=== PATIENT | female | born 1950 | race African-American/Black ===

== ENCOUNTER 2017-04-20 13:35 | Inpatient (IN) | payer OTHER ==
[~2017-04-20] VITALS: Ht 160 cm; Wt 63.5 kg
--- NOTE | ~2017-04-20 | HC ---
[facility] [place] [address] CONSULTATION Name: MESSI CHAMBERLAIN Room #: 421-P ADM IN M.R.#: [id number] Admission: 04/20/17 Attend Phys: Samuel Malone DO Discharge: Date of : 50 Report #: [id number] THIS REPORT FOR: //name// CC: [facility] physician/PCP Missael TORRES MD REASON FOR CONSULTATION: The patient is a 66-year-old woman with abdominal pain and CT evidence of diverticulitis. HISTORY OF PRESENT ILLNESS: The patient reports that about 4-5 years ago, she had an episode of diverticulitis when she developed severe left lower quadrant abdominal pain. She was evaluated and treated nonsurgically. She also had a colonoscopy at that time and was told that she had some colon polyps. She has not had a followup colonoscopy since that time. She reports she has done well since that time, although she does have some problems with constipation, and she takes Correctol and Metamucil and still has some difficulty with defecation. She has not had any rectal bleeding. She was well until the past several days when she developed vague lower abdominal pain. The pain was tolerable. However, yesterday when she was at a ____ shop purchasing some DVDs for her grandchildren, she developed severe abdominal pain, had a syncopal episode and hit her head. She was brought to [facility] where she underwent evaluation. She did have a noncontrast CT of the head. No acute processes were identified. She also had a CTA of the abdomen and pelvis, which revealed extensive diverticular disease in the descending and sigmoid colon with abnormal wall thickening and pericolonic fat stranding in the [id number] sigmoid colon consistent with acute diverticulitis. She was also found to have evidence of a new bulky retroperitoneal lymphadenopathy, which was reported to be nonspecific, but it did raise a question of lipoma or metastatic disease. She also had uterine fibroid and a large hepatic hemangioma. PAST MEDICAL HISTORY: Previous diverticulitis, high blood pressure and elevated cholesterol. PAST SURGICAL HISTORY: C-sections x 4. ALLERGIES: ERYTHROMYCIN AND PENICILLIN. USUAL HOME MEDICINES: Quinapril 10 mg daily and pravastatin 20 mg at bedtime. FAMILY HISTORY: Father had bone cancer. She thinks her mother had a lymphoma. There is no family history of colon cancer. [facility] [address] [place] [address] CONSULTATION Name: MESSI CHAMBERLAIN Room #: 421-P [facility] IN M.R.#: [id number] Admission: 04/20/17 Attend Phys: Samuel Malone DO Discharge: Date of : 50 Report #: [id number] SOCIAL HISTORY: for 45 years. She never smoked and does not consume alcohol. REVIEW OF SYSTEMS: GENERAL: No change in weight, fever or chills. CENTRAL NERVOUS SYSTEM: No focal weakness, numbness, loss of consciousness or stroke other than the syncopal episode yesterday, which was thought to be vasovagal. HEENT: No change in vision, hearing or sores in the mouth. PULMONARY: No cough, pneumonia or tuberculosis. CARDIOVASCULAR: No chest pain, chest tightness or palpitations. GASTROINTESTINAL: No nausea, vomiting or hematemesis. He has had diverticulitis and polyps in the past. No rectal bleeding. GENITOURINARY: Without dysuria or pyuria, kidney stones or kidney tract infections. GYNECOLOGIC: Previous C-sections, no discharges or breast problems. MUSCULOSKELETAL: No arthralgias or myalgias. SKIN: Without rashes. PSYCHIATRIC: No depression, anxiety or bipolar illness. ENDOCRINE: She denies hormone problems, diabetes or thyroid disease. HEMATOLOGIC: No bleeding, bruising or known malignancies. PHYSICAL EXAMINATION: GENERAL: The patient is a well-developed, well-nourished, overweight woman in no acute distress. VITAL SIGNS: Blood pressure 139/64, pulse 72. HEENT: Anicteric. Pupils equal and round. Oropharynx clear. NECK: Supple. CHEST: Clear. HEART: Regular rate and rhythm, normal S1 and S2. ABDOMEN: Obese, normal bowel sounds, soft without hepatosplenomegaly, nodules or masses. She does have moderate tenderness in the left abdomen but no rebound or rigidity, and overall, she has benign abdomen. RECTAL: Deferred. EXTREMITIES: Without cyanosis, clubbing or edema. NEUROLOGIC: Oriented to person, place and time. Moves all 4 extremities well. LABORATORIES: White count of 12.5, initially down to 5.4. Hemoglobin was 12.7, down to 10.3, MCV of 89.9. Electrolytes notable for potassium of 3.2. BUN and creatinine are within normal limits. Liver function studies were normal. Albumin was 3.8 on admission. Lipase was 121. ASSESSMENT: 1. Acute diverticulitis, recurrent. 2. History of colon polyps. 3. Retroperitoneal adenopathy, new finding. [facility] [address] [place] [address] CONSULTATION Name: MESSI CHAMBERLAIN Room #: 421-P ADM IN M.R.#: [id number] Admission: 04/20/17 Attend Phys: Samuel Malone DO Discharge: Date of : 50 Report #: [id number] 4. Family history of lymphoma in her mother. 5. High blood pressure. 6. Elevated cholesterol. 7. Recent loss of consciousness, questionably vasovagal event associated with abdominal pain. RECOMMENDATIONS: 1. The patient is currently receiving antibiotics with Cipro and metronidazole and would continue. 2. Colonoscopy, especially in view of her history of colon polyps. Would defer for about 4 weeks to allow healing of her diverticulitis. 3. The patient will need followup of her retroperitoneal adenopathy, likely a followup CT, and if not resolved, hematologic evaluation. <ELECTRONICALLY SIGNED> By: Missael Ramirez MD 04/23/17 1601 [id number] Missael Ramirez MD /nt
--- NOTE | ~2017-04-20 | EKG ---
[address] [employer] [place] [address] ELECTROCARDIOGRAM REPORT Name: MESSI CHAMBERLAIN Room #: 421-P ADM IN M.R.#: [id number] Admission: 04/20/17 Attend Phys: Samuel Malone DO Discharge: Date of : 50 Report #: [id number] THIS REPORT FOR: //name// [facility] ED Test Date: 2017-04-20 Test Time: 13:45:24 Pat Name: MESSI CHAMBERLAIN Department: Room: [facility] Gender: F [employer] Custodian: BRADY : 1950 Requested By: Horace Kumar Order Number: [id number] MD: Shade Torres Measurements Intervals [place] Rate: 76 P: 69 [place]: 187 QRS: 53 QRSD: 84 T: 42 QT: 364 QTc: 410 Interpretive Statements Sinus rhythm No significant abnormality Compared to ECG 09/09/2009 22:46:08 ST (T wave) deviation no longer present Electronically Signed On 04-22-2017 13:36:08 CDT by Shade Torres [email or web address] <ELECTRONICALLY SIGNED> By: Shade Torres MD, [facility] 04/22/17 1336 [id number] 44 Shade Torres MD, [facility] /EPI
[~2017-04-20 13:35] MED LIST: CHERATUSSIN DA480 ML PO; DOXYCYCLINE 10100 MG PO; QUINAPRIL 20 MG20 MG PO
[2017-04-20 13:36] VITALS: BP 163/66
[2017-04-20 13:59] LABS: HEMATOCRIT 37.3 % (37.0-47.0); HEMOGLOBIN 12.7 gm/dL (12.0-15.0); MCH 30.4 pg (26.0-34.0); MCHC 33.9 g/dL (28.0-37.0); MCV 89.6 fL (80.0-100.0); RBC 4.16 mil/uL (4.20-5.00); RDW 13.2 % (10.5-14.5); WBC 12.5 thou/uL (4.0-11.0)
[2017-04-20 14:06] LABS: ANION GAP 9 mmol/L (7-16); BUN 11 mg/dL (7-18); CALCIUM 9.2 mg/dL (8.5-10.1); CHLORIDE 105 mmol/L (98-107); CO2 25 mmol/L (21-32); CREATININE 0.8 mg/dL (0.6-1.0); GLUCOSE 112 mg/dL (74-106); POTASSIUM 3.4 mmol/L (3.5-5.1); SODIUM 139 mmol/L (136-145)
[2017-04-20 14:15] LABS: ALBUMIN 3.8 g/dL (3.4-5.0); ALKALINE PHOSPHATASE 47 U/L (46-116); DIRECT BILIRUBIN 0.2 mg/dL (<0.1-0.3); SGOT 18 U/L (15-37); SGPT 29 U/L (30-65); TOTAL BILIRUBIN 0.8 mg/dL (<0.1-1.0); TOTAL PROTEIN 7.3 g/dL (6.4-8.2); TROPONIN-I < 0.04 ng/mL (<0.04-0.07)
[2017-04-20 17:26] LABS: URINE BILIRUBIN NEGATIVE (Negative); URINE BLOOD TRACE (Negative); URINE COLOR YELLOW; URINE GLUCOSE-RANDOM* NEGATIVE (Negative); URINE KETONES TRACE (Negative); URINE LEUKOCYTES-REFLEX NEGATIVE (Negative); URINE PROTEIN (DIPSTICK) NEGATIVE (Negative); URINE SPECIFIC GRAVITY <= 1.005 (1.003-1.035); URINE UROBILINOGEN 0.2 E.U./dl (0.2-1.0)
[2017-04-20 17:46] VITALS: BP 164/73
[2017-04-20 17:52] VITALS: BP 164/73
[2017-04-20 18:06] VITALS: BP 158/66
[2017-04-20] MEDS ORDERED: QUINU10 PD PO (18:37)
[2017-04-20] MEDS ORDERED: PRAVACHOL20 MG PO (18:38)
[2017-04-20 20:00] VITALS: BP 179/65
[2017-04-21] VITALS: BP 149/65
[2017-04-21 06:06] LABS: ABSOLUTE NEUTROPHILS 6.9 thou/uL (1.4-8.2); BASOPHILS 0.7 % (0.0-2.0); HEMATOCRIT 34.1 % (37.0-47.0); HEMOGLOBIN 11.4 gm/dL (12.0-15.0); LYMPHOCYTES 14.7 % (24.0-44.0); MCH 30.1 pg (26.0-34.0); MCHC 33.3 g/dL (28.0-37.0); MCV 90.1 fL (80.0-100.0); MONOCYTES 6.8 % (1.0-8.0); PLATELET COUNT 214 thou/uL (150-400); POLYS 76.8 % (36.0-66.0); RBC 3.78 mil/uL (4.20-5.00); RDW 13.5 % (10.5-14.5)
[2017-04-21 06:08] LABS: MANUAL DIFF NO
[2017-04-21 06:24] LABS: CALCIUM 8.5 mg/dL (8.5-10.1); CREATININE 0.8 mg/dL (0.6-1.0); POTASSIUM 3.6 mmol/L (3.5-5.1)
[2017-04-21 08:00] VITALS: BP 144/53
[2017-04-21 16:00] VITALS: BP 152/76
[2017-04-21 19:25] VITALS: BP 164/54
[2017-04-22 04:17] VITALS: BP 138/59
[2017-04-22 04:47] LABS: ABSOLUTE NEUTROPHILS 3.6 thou/uL (1.4-8.2); BASOPHILS 0.8 % (0.0-2.0); EOSINOPHILS 2.9 % (0.0-3.0); HEMOGLOBIN 10.3 gm/dL (12.0-15.0); LYMPHOCYTES 22.5 % (24.0-44.0); MCH 29.9 pg (26.0-34.0); MCHC 33.3 g/dL (28.0-37.0); MCV 89.9 fL (80.0-100.0); MONOCYTES 7.8 % (1.0-8.0); PLATELET COUNT 233 thou/uL (150-400); RBC 3.45 mil/uL (4.20-5.00); RDW 13.3 % (10.5-14.5); WBC 5.4 thou/uL (4.0-11.0)
[2017-04-22 04:49] LABS: MANUAL DIFF NO
[2017-04-22 05:07] LABS: CALCIUM 8.5 mg/dL (8.5-10.1); CREATININE 0.7 mg/dL (0.6-1.0); MAGNESIUM 2.1 mg/dL (1.8-2.4); POTASSIUM 3.2 mmol/L (3.5-5.1); TOTAL BILIRUBIN 0.3 mg/dL (<0.1-1.0); TOTAL PROTEIN 6.4 g/dL (6.4-8.2)
[2017-04-22 07:14] VITALS: BP 139/64
[2017-04-22 16:48] VITALS: BP 179/67
[2017-04-22 19:56] VITALS: BP 156/62
[2017-04-23 03:53] VITALS: BP 136/63
[2017-04-23 06:24] LABS: ABSOLUTE NEUTROPHILS 2.4 thou/uL (1.4-8.2); BASOPHILS 1.3 % (0.0-2.0); EOSINOPHILS 4.9 % (0.0-3.0); HEMATOCRIT 32.9 % (37.0-47.0); HEMOGLOBIN 11.2 gm/dL (12.0-15.0); LYMPHOCYTES 27.8 % (24.0-44.0); MCH 30.2 pg (26.0-34.0); MCHC 33.9 g/dL (28.0-37.0); MCV 89.1 fL (80.0-100.0); MONOCYTES 9.4 % (1.0-8.0); PLATELET COUNT 239 thou/uL (150-400); POLYS 56.6 % (36.0-66.0); RBC 3.69 mil/uL (4.20-5.00); RDW 13.1 % (10.5-14.5); WBC 4.3 thou/uL (4.0-11.0)
[2017-04-23 06:30] LABS: MANUAL DIFF NO
[2017-04-23 06:39] LABS: CALCIUM 9.1 mg/dL (8.5-10.1); CREATININE 0.8 mg/dL (0.6-1.0); POTASSIUM 3.7 mmol/L (3.5-5.1)
[2017-04-23 07:29] VITALS: BP 172/75
[2017-04-23 16:11] VITALS: BP 162/90
[2017-04-23 20:00] VITALS: BP 165/63
[2017-04-24 06:00] VITALS: BP 121/45
[2017-04-24 06:21] LABS: BASOPHILS 1.5 % (0.0-2.0); EOSINOPHILS 5.8 % (0.0-3.0); HEMATOCRIT 33.9 % (37.0-47.0); HEMOGLOBIN 11.4 gm/dL (12.0-15.0); MCHC 33.6 g/dL (28.0-37.0); MCV 89.3 fL (80.0-100.0); MONOCYTES 10.6 % (1.0-8.0); PLATELET COUNT 299 thou/uL (150-400); POLYS 52.1 % (36.0-66.0); RDW 12.8 % (10.5-14.5); WBC 3.9 thou/uL (4.0-11.0)
[2017-04-24 06:35] LABS: ALBUMIN 3.3 g/dL (3.4-5.0); CALCIUM 9.1 mg/dL (8.5-10.1); CREATININE 0.8 mg/dL (0.6-1.0); TOTAL BILIRUBIN 0.5 mg/dL (<0.1-1.0); TOTAL PROTEIN 6.5 g/dL (6.4-8.2)
[2017-04-24 06:41] LABS: MANUAL DIFF NO
[2017-04-24 08:39] VITALS: BP 155/62
[2017-04-24 15:42] VITALS: BP 159/86
[2017-04-24 19:46] VITALS: BP 150/90
[2017-04-25 04:05] VITALS: BP 124/73
[2017-04-25 09:21] VITALS: BP 156/54
[2017-04-25 16:06] VITALS: BP 170/68
[2017-04-25 17:27] VITALS: BP 158/68
[2017-04-25 19:30] VITALS: BP 150/70
[2017-04-26 04:30] VITALS: BP 152/66
[2017-04-26 07:26] VITALS: BP 138/76
[2017-04-26] MEDS ORDERED: ZOFRAN ODT4 MG PO (10:23)
[2017-04-26] MEDS ORDERED: FLAGYL500 MG PO (10:23)
[2017-04-26] MEDS ORDERED: MIRALAX17 GM PO (10:23)
[2017-04-26] MEDS ORDERED: CIPRO500 MG PO (10:23)
[2017-04-26 15:37] VITALS: BP 138/76
[2017-04-26 17:23] VITALS: BP 145/74
== END 2017-04-26 18:42 | disposition home or self-care (01) | DRG 872 ==
LOC: ER 13:35 → 4E 17:12 → EROBS 17:12 → 4E 17:50
PROVIDERS: Emergency Medicine; Internal Medicine Endocrinology, Diabetes & Metabolism; Internal Medicine Geriatric Medicine; Nurse Practitioner Family
DX: A41.9 Sepsis, unspecified organism (principal); K57.32 Diverticulitis of large intestine without perforation or abscess without bleeding; E78.00 Pure hypercholesterolemia, unspecified; R59.9 Enlarged lymph nodes, unspecified; E78.5 Hyperlipidemia, unspecified; I10 Essential (primary) hypertension; E87.6 Hypokalemia; K80.20 Calculus of gallbladder without cholecystitis without obstruction; K59.00 Constipation, unspecified; D18.09 Hemangioma of other sites; Z88.1 Allergy status to other antibiotic agents; Z88.0 Allergy status to penicillin; Z80.8 Family history of malignant neoplasm of other organs or systems; Z86.010 Personal history of colon polyps
CPT/HCPCS: 10084